=== PATIENT | female | born 1990 | race Caucasian/White ===

== ENCOUNTER 2019-09-13 13:53 | Outpatient (CLI) | payer BC, SELFPAY ==
--- NOTE | ~2019-09-13 | US_ITS ---
EXAMINATION: US thyroid DATE: 09/13/2019 14:23 INDICATION: Abnormal thyroid function test. Hypothyroidism. TECHNIQUE: Multiple ultrasound images of the thyroid were obtained. COMPARISON: None. FINDINGS: The right thyroid lobe measures 4.1 x 2.4 x 1.8 cm. The left thyroid lobe measures 4.7 x 1.2 x 1.5 c m. The thyroid is diffusely heterogeneous and hypoechoic without discrete nodule. Vascularity is nor mal. IMPRESSION: 1. Heterogeneous thyroid, which may be chronic lymphocytic (Laurence) thyroiditis. Reviewed, dictated and finalized at location A. IMPRESSION: 1. Heterogeneous thyroid, which may be chronic lymphocytic (Laurence) thyroidi tis.
== END 2019-09-13 13:54 | disposition home or self-care (01) ==
DX: R94.6 Abnormal results of thyroid function studies (principal)
CPT/HCPCS: 76536

== ENCOUNTER 2021-08-27 14:39 | Emergency (ER) | payer OTHER, SELFPAY ==
[2021-08-27 14:51] VITALS: BP 99/65; PULSE 94; RESP 18; TEMP 36.6; O2SAT 98
[2021-08-27 15:19] LABS: Basophils Percent Auto 0.5 % (0.2-1.2); Eosinophils Absolute Auto 0.1 K/mm3 (0-0.3); Eosinophils Percent Auto 1.9 % (0-4.4); Hematocrit 30.6 % (37.0-47.0); Hemoglobin 9.9 g/dL (12.0-15.0); Immature Granulocyte Absolute 0.01 K/mm3 (0.00-0.031); Immature Granulocyte Percent A 0.2 % (0-0.5); Immature Platelet Fraction Pct 6.7 % (0.9-11.2); Lymphocytes Absolute Auto 3.86 K/mm3 (0.9-3.2); Lymphocytes Percent Auto 60.6 % (18.3-44.2); Mean Corpuscular HGB Conc 32.4 g/dl (32-36); Mean Corpuscular Hemoglobin 27.5 pg (26-34); Mean Platelet Volume 10.9 fl (7.4-10.4); Monocytes Absolute Auto 0.4 K/mm3 (0.1-0.6); Monocytes Percent Auto 6.9 % (2.6-8.5); Neutrophils Absolute Auto 1.9 K/mm3 (1.3-6.7); Neutrophils Percent Auto 29.9 % (45.5-73.1); Platelet Count Result 115 k/mm3 (150-375); Red Cell Distribution Width 14.8 % (11.5-14.5); White Blood Count 6.4 K/mm3 (4.5-10.0)
[2021-08-27 15:26] LABS: INR 1.4; Partial Thromboplastin Time 32.8 SECONDS (22.3-36.8); Prothrombin Time 16.5 Seconds (11.1-14.7)
[2021-08-27 15:27] LABS: Alanine Aminotransferase 40 U/L (6-35); Albumin Level 3.8 g/dL (3.5-5.1); Alkaline Phosphatase 60 U/L (38-126); Anion Gap 6 mmol/L (8-16); Aspartate Amino Transferase 39 U/L (14-36); Bilirubin,Total 0.2 mg/dL (0.2-1.3); Blood Urea Nitrogen 11 mg/dL (7-17); Calcium 8.5 mg/dL (8.4-10.2); Carbon Dioxide 27 mmol/L (22-30); Chloride 104 mmol/L (98-107); Estimated CRCL calculation 168 ml/min; Estimated Glomerular Filt Rate > 60; Glucose 90 mg/dL (65-110); Potassium 3.8 mmol/L (3.4-5.0); Sodium 137 mmol/L (137-145)
--- NOTE | 2021-08-27 20:10 | PC.NURSE ---
no answer x3 at triage
== END 2021-08-27 20:10 | disposition left against medical advice (07) ==
LOC: ANHED 20:22
PROVIDERS: Emergency Medicine
DX: Z53.21 Procedure and treatment not carried out due to patient leaving prior to being seen by health care provider (principal)
CPT/HCPCS: 36415; 80053; 85025; 85055; 85610; 85730; 86850; 86900; 86901; 99199

== ENCOUNTER 2023-09-20 07:11 | Outpatient (RCR) | payer BC, SELFPAY ==
[2023-09-20 07:43] LABS: Hematocrit 28.8 % (37.0-47.0); Hemoglobin 8.7 g/dL (12.0-15.0); Immature Platelet Fraction Pct 8.5 % (0.9-11.2); Mean Corpuscular HGB Conc 30.2 g/dl (32-36); Mean Corpuscular Hemoglobin 24.6 pg (26-34); Mean Corpuscular Volume 81.6 fl (80-100); Mean Platelet Volume 11.7 fl (7.4-10.4); Platelet Count Result 115 k/mm3 (150-375); Red Blood Count 3.53 M/mm3 (4.2-5.4); Red Cell Distribution Width 14.7 % (11.5-14.5); White Blood Count 8.1 K/mm3 (4.5-10.0)
[2023-09-20 08:35] LABS: HIV 1/2 Ab P24 Ag Result Negative (Negative)
[2023-09-20 11:26] LABS: Rapid Plasma Reagin Non-Reactive (NonReactive)
[2023-09-20] MEDS: RHO(D) IMMUNE GLOBULIN 300 MCG/2 ML SYRINGE IM (16:01)
== END 2023-12-19 23:59 | disposition home or self-care (01) ==
LOC: ANHLAB 07:11
PROVIDERS: Visit Provider Student in an Organized Health Care Education/Training Program
DX: Z11.4 Encounter for screening for human immunodeficiency virus [HIV] (principal); Z11.3 Encounter for screening for infections with a predominantly sexual mode of transmission; Z29.13 Encounter for prophylactic Rho(D) immune globulin; O36.0190 Maternal care for anti-D [Rh] antibodies, unspecified trimester, not applicable or unspecified; Z3A.00 Weeks of gestation of pregnancy not specified
CPT/HCPCS: 36415; 85027; 85055; 85461; 86592; 86703; 86850; 86900; 86901; 90384; 96372; G0432; J2790

== ENCOUNTER 2023-10-15 12:40 | Outpatient (CLI) | payer BC, SELFPAY ==
--- NOTE | ~2023-10-15 | US_ITS ---
EXAMINATION: US OB follow up DATE: 10/15/2023 13:04 INDICATION: Maternal gestational diabetes during third trimester assess growth. TECHNIQUE: Real-time ultrasound of the pelvis was performed. The interpreting radiologist was not pre sent for the study. COMPARISON: None. FINDINGS: There is a single living fetus in vertex presentation. The placenta is anterior. heart rate is 145 beats per minute (bpm). The amniotic fluid index is 12.9 cm, which is normal (5th%-95%: 8.8-23. 8 cm at 31 weeks estimated gestational age). The following biometric data were obtained: BPD: 8.5 cm -> 34 weeks 3 days Head circumference: 31.3 cm -> 35 weeks 0 days Abdominal circumference: 29. cm -> 133 weeks 1 days Femur length: 6.3 cm -> 32 weeks 4 days These measurements are concordant. Head circumference to abdominal circumference ratio: 1.07 (normal range 0.95-1.11). Estimated weight: 2158 g (+/-) 324 g or 4 lbs. 12 oz. (+/-) 11 oz. IMPRESSION: 1. Single living fetus in vertex presentation with heart rate of 145 bpm. 2. Gestational age by ultrasound of 33 weeks 6 day(s) +/- 2 week(s) 3 day(s) with ultrasound estimate d date of delivery (RANJANA) of 11/27/2023. Estimated weight is 86th percentile by Hadlock criteria when 12/12/2023 is used as the RANJANA. Please correlate with clinical information or earlier ultrasounds for most accurate RANJANA. 3. Normal amniotic fluid index of 12.9 cm. Reviewed, dictated and finalized at location A. IMPRESSION: 1. Single living fetus in vertex presentation with heart rate of 145 bpm. 2. Gestational age by ultrasound of 33 weeks 6 day(s) +/- 2 week(s) 3 day(s) wi th ultrasound estimated date of delivery (RANJANA) of 11/27/2023. Estimated we ight is 86th percentile by Hadlock criteria when 12/12/2023 is used as the RANJANA. Please correlate with clinical information or earlier ultrasounds for most acc urate RANJANA. 3. Normal amniotic fluid index of 12.9 cm.
== END 2023-10-15 12:41 ==
PROVIDERS: PCP Student in an Organized Health Care Education/Training Program; Visit Provider Student in an Organized Health Care Education/Training Program
DX: Z34.90 Encounter for supervision of normal pregnancy, unspecified, unspecified trimester (principal)
CPT/HCPCS: 76816

== ENCOUNTER 2023-11-09 13:32 | Observation (INO) | payer BC, SELFPAY ==
[2023-11-09 14:00] VITALS: BP 106/68; PULSE 109
[2023-11-09 14:15] VITALS: BP 96/64; PULSE 122
[2023-11-09 14:30] VITALS: BP 91/62; PULSE 113
--- NOTE | 2023-11-09 15:00 | OBADM ---
This patient, Bozena Guerra, admitted to the OB room Labor/Delivery/Recovery 120 for observation. Patient/family oriented to hospital policies and general routines including ID bracelet, bed and alarms, visiting hours, pain management, procedures, bathroom and other care routines, personal items, smoking policy, room service/diet, and visiting hours. Patient/Family are encouraged to report perceived risks to care and to ask questions if they do not understand what they are told or what they should do.
--- NOTE | 2023-11-10 08:36 | PM.OBTRLD ---
OB - Triage/Final Diagnosis Visit Information Date of evaluation: 11/09/23 Reason for evaluation: threatened labor Comments/Additional reasons for admission: I have assessed the risk for this patient, Bozena Linsey Guerra, and determined that she would benefit from observation care. Evaluation Vital signs: Vital Signs - 24 hr 11/09/23 14:00 11/09/23 14:15 11/09/23 14:30 Pulse Rate 109 H 122 H 113 H Blood Pressure 106/68 96/64 L 91/62 L
== END 2023-11-09 14:55 | disposition home or self-care (01) ==
PROVIDERS: Admitting Provider Student in an Organized Health Care Education/Training Program; Visit Provider Student in an Organized Health Care Education/Training Program
DX: O47.03 False labor before 37 completed weeks of gestation, third trimester (principal); Z3A.35 35 weeks gestation of pregnancy
CPT/HCPCS: 59025; G0378; G0379

== ENCOUNTER 2023-11-23 11:54 | Outpatient (RCR) | payer BC, SELFPAY ==
[2023-10-26 12:24] VITALS: BP 98/64; PULSE 100
[2023-10-29 09:06] VITALS: BP 91/58; PULSE 100
[2023-11-02 10:51] VITALS: BP 92/60; PULSE 85
[2023-11-05 16:29] VITALS: BP 99/62; PULSE 80
[2023-11-09 12:00] VITALS: BP 96/62; PULSE 70
[2023-11-12 13:46] VITALS: BP 101/64; PULSE 92
[2023-11-16 12:27] VITALS: BP 101/64; PULSE 101
[2023-11-18 22:02] VITALS: BP 102/70; PULSE 89
--- NOTE | ~2023-11-23 | US_ITS ---
EXAMINATION: US OB follow up DATE: 11/05/2023 16:20 INDICATION: Gestational diabetes. Third trimester. TECHNIQUE: Real-time ultrasound of the pelvis was performed. COMPARISON: Ultrasound 10/15/2023, 05/05/2023 FINDINGS: There is a single living fetus in vertex presentation. The placenta is anterior. heart rate is 148 beats per minute (bpm). The amniotic fluid volume is subjectively normal. The following biometric data were obtained: Biparietal diameter (BPD): 9.0 cm; head circumference (HC): 33.3 cm; abdominal circumference (AC): 34 .3 cm; femur length (FL): 7.1 cm. These measurements are concordant. Estimated weight is 3253 g +/- 488 g, which correlates with the >97th percentile when 12/12/23 is used as estimated date of delivery. As single measurements, these parameters are each equal to the following estimated gestational ages: BPD: 36 weeks 4 days. HC: 38 weeks 0 days. AC: 38 weeks 2 days. FL: 36 weeks 3 days. estimated gestational age based solely on measurements from this exam is 37 weeks 2 days +/- 2 weeks 4 days. IMPRESSION: 1. Single living fetus in vertex presentation. 2. Large for gestational age. Estimated weight is 3253 g +/- 488 g, which correlates with the >97th percentile when 12/12/23 is used as estimated date of delivery. Reviewed, dictated and finalized at location A. IMPRESSION: 1. Single living fetus in vertex presentation. 2. Large for gestational age. Estimated weight is 3253 g +/- 488 g, whic h correlates with the >97th percentile when 12/12/23 is used as estimated date of delivery.
[2023-11-23 12:39] VITALS: BP 102/63; PULSE 90
== END 2024-01-03 09:43 | disposition home or self-care (01) ==
LOC: ANHOBOP 11:54
PROVIDERS: Visit Provider Obstetrics & Gynecology
DX: O24.419 Gestational diabetes mellitus in pregnancy, unspecified control (principal); Z3A.33 33 weeks gestation of pregnancy
CPT/HCPCS: 59025; 76816

== ENCOUNTER 2023-11-25 02:55 | Inpatient (IN) | payer BC, SELFPAY ==
[2023-11-25] VITALS (53 sets, daily range): BP systolic 88–106; BP diastolic 47–69; PULSE 61–102; RESP 14–18; TEMP 36.6–37.6; O2SAT 95–100; BMI 35.9
[2023-11-25] MEDS: LACTATED RINGERS 1,000 ML 125 ML IV CONT ×2 (03:32→06:11)
--- NOTE | 2023-11-25 03:35 | LDADM ---
This patient, Bozena Guerra, was admitted to Labor/Delivery/Recovery 119 on 11/25/23 at 02:55. Plans for labor, pain management and were discussed with patient. Patient/family oriented to hospital policies and general routines including ID bracelet, bed and alarms, visiting hours, pain management, procedures, bathroom and other care routines, personal items, smoking policy, room service/diet and guest tray routines, security routines, and visiting hours. Patient/Family are encouraged to report perceived risks to care and to ask questions if they do not understand what they are told or what they should do. See OBIX for further documentation.
[2023-11-25 03:55] LABS: OBXCEM ROM Plus Positive (Negative)
[2023-11-25 04:02] LABS: Basophils Percent Auto 0.3 % (0.2-1.2); Eosinophils Absolute Auto 0.1 K/mm3 (0-0.3); Eosinophils Percent Auto 0.7 % (0-4.4); Hematocrit 33.8 % (37.0-47.0); Hemoglobin 11.3 g/dL (12.0-15.0); Immature Granulocyte Absolute 0.04 K/mm3 (0.00-0.031); Immature Granulocyte Percent A 0.5 % (0-0.5); Lymphocytes Absolute Auto 3.44 K/mm3 (0.9-3.2); Lymphocytes Percent Auto 39.6 % (18.3-44.2); Mean Corpuscular HGB Conc 33.4 g/dl (32-36); Mean Corpuscular Hemoglobin 27.8 pg (26-34); Mean Corpuscular Volume 83.3 fl (80-100); Mean Platelet Volume 11.1 fl (7.4-10.4); Monocytes Absolute Auto 0.6 K/mm3 (0.1-0.6); Monocytes Percent Auto 7.4 % (2.6-8.5); Neutrophils Absolute Auto 4.5 K/mm3 (1.3-6.7); Neutrophils Percent Auto 51.5 % (45.5-73.1); Platelet Count Result 129 k/mm3 (150-375); Red Blood Count 4.06 M/mm3 (4.2-5.4); Red Cell Distribution Width 19.2 % (11.5-14.5); White Blood Count 8.7 K/mm3 (4.5-10.0)
[2023-11-25 04:07] LABS: Partial Thromboplastin Time 23.3 Seconds (22.3-36.8); Prothrombin Time 13.1 Seconds (11.1-14.7)
[2023-11-25 04:10] LABS: Glucose Point of Care 79 mg/dl (65-105)
[2023-11-25 04:25] LABS: Rubella IgG Antibody > 110.0 IU/ML
[2023-11-25 04:27] LABS: Rapid Plasma Reagin Non-Reactive (NonReactive)
[2023-11-25 04:36] LABS: HIV 1/2 Ab P24 Ag Result Negative (Negative)
[2023-11-25 05:08] LABS: Hepatitis B Surface Antigen Negative (Negative)
[2023-11-25] MEDS: AZITHROMYCIN 500 MG/NS 250 ML 500 MG/250 ML BAG 250 MG IVPB (06:38)
[2023-11-25] MEDS: ACETAMINOPHEN 500 MG TABLET 1000 MG PO (06:43)
--- NOTE | 2023-11-25 07:08 | PM.IMHP ---
H&P: HPI History of Present Illness Date/Time: 11/25/23 07:08 Chief Complaint: spontaneous rupture of membranes history of gestational diabetes desires permanent sterilization Narrative: 32 yo at 37w4d who presents with SROM. pt has h/o prior . Review of Systems Cardiovascular: Cardiovascular: Denies chest pain, Denies leg edema, Denies palpitations, Denies dyspnea and Denies dyspnea on exertion Respiratory: Respiratory: Denies cough, Denies dyspnea and Denies dyspnea on exertion Gastrointestinal: Gastrointestinal: Denies abdominal pain, Denies constipation, Denies diarrhea, Denies nausea and Denies vomiting Genitourinary: Genitourinary: Denies hematuria, Denies urinary frequency, Denies dysuria, Denies pelvic pain, Denies urinary incontinence and Denies vaginal discharge Neurologic: Reports system reviewed and no additional complaints, except as documented Psychiatric: Psychiatric: Reports no additional psychiatric complaints Endocrine: Endocrine: Denies palpitations PMFSH Past Medical History Medical History Abnormal glucose tolerance in IBS (irritable bowel syndrome) Suppression of menses Vaginal discharge Surgical History Surgical History H/O gastric sleeve History of delivery Family History Family History Father Diabetes mellitus Mother COPD mixed type Grandparent Breast cancer Social History Social History Smoking status: Never smoker Second hand tobacco smoke exposure: No Alcohol intake: never Substance use: never Substance use type: does not use Do You Feel Safe in your Home?: Yes Lack of Transportation: No Lack of Food: Never True Current Housing: I Have Housing Concerned About Future Housing: No Difficulty Paying Gas/Electric Bills: No Difficulty Paying for Meds: No Currently Unemployed: No Education: Bachelor's Degree Difficulty w/ Childcare or Family Care: No Living arrangements: with family Occupation/Education: occupation 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 Gender identity (if verbalized by the patient): Female Spiritual care concerns: No Meds Home Medications and Allergies Home Medications Medication Instructions Recorded Confirmed Type folic acid 1 mg tablet 1 mg PO DAILY 02/02/23 11/25/23 History levothyroxine 88 mcg tablet 88 mcg PO DAILY 02/02/23 11/25/23 History omeprazole 20 mg capsule,delayed 20 mg PO DAILY 02/02/23 11/25/23 History release ksvuqdxxhr-zpxbyxgkstqwt-vktjbvtc 1 cap PO Q6H PRN pain #30 caps 06/10/23 11/24/23 Rx 50 mg-300 mg-40 mg capsule (Fioricet) metformin 500 mg tablet See Rx Instructions .Route 09/20/23 11/25/23 Rx .COMPLEX #90 tabs vits no.126-ferrous fum 1 tablet PO DAILY 11/12/23 11/25/23 History 28 mg iron-folic acid 800 mcg tablet (Classic ) RSV vac, preF A and preF B(PF) 120 0.5 ml IM ONCE #1 ea 11/15/23 11/25/23 Rx mcg/0.5 mL IM solution (Abrysvo (PF)) heparin (porcine) 5,000 unit/mL (1 5,000 unit subcut Q12H #50 mL 11/17/23 11/25/23 Rx mL) injection cartridge Allergies Allergy/AdvReac Type Severity Reaction Status Date / Time adhesive AdvReac Mild Rash Verified 11/25/23 04:48 Vital Signs Vital Signs - 24 hr 11/25/23 03:34 11/25/23 04:09 11/25/23 04:08 Temperature 98.2 F Pulse Rate 95 Respiratory Rate 18 Blood Pressure 88/58 L Oxygen Delivery Room Air 11/25/23 04:55 11/25/23 05:11 11/25/23 06:01 Temperature 97.9 F Pulse Rate 83 81 Respiratory Rate Blood Pressure 102/60 99/62 L Oxygen Delivery 11/25/23 06:49 11/25/23 07:01 11/25/23 05:00 Temperature 98.3 F Pulse Rate 102 H 83 Respiratory Rate Blood Pressure 106/65 1
[2023-11-25] MEDS: FAMOTIDINE 20 MG/2 ML VIAL IV PUSH (07:10)
[2023-11-25] MEDS: ONDANSETRON INJ 4 MG/2 ML VIAL IV PUSH (07:10)
--- NOTE | 2023-11-25 07:29 | WPDANESEPPF ---
Anes - Initial Pre Proc Eval Procedure: Operation Date: 11/25/23 03:10 Proposed Procedures p Section - Edwardo Pan MD Date/Time: 11/25/23 07:29 Surgeon: Edwardo Pan MD Pre Op Diagnosis: Leaking Fluid R C/S Patient Data Age: 32 Gender: F Height: 1.55 m Weight: 86.36 kg Last Vital Signs Temp 98.3 F 11/25/23 06:49 Pulse 102 H 11/25/23 07:01 Resp 18 11/25/23 04:08 BP 106/65 11/25/23 07:01 O2 Del Method Room Air 11/25/23 03:34 Allergies Allergy/AdvReac Type Severity Reaction Status Date / Time adhesive AdvReac Mild Rash Verified 11/25/23 04:48 Home Medications Medication Instructions Recorded Confirmed Type folic acid 1 mg tablet 1 mg PO DAILY 02/02/23 11/25/23 History levothyroxine 88 mcg tablet 88 mcg PO DAILY 02/02/23 11/25/23 History omeprazole 20 mg capsule,delayed 20 mg PO DAILY 02/02/23 11/25/23 History release lrhbkccwys-lanxrwjqbiecy-bebryszx 1 cap PO Q6H PRN pain #30 caps 06/10/23 11/24/23 Rx 50 mg-300 mg-40 mg capsule (Fioricet) metformin 500 mg tablet See Rx Instructions .Route 09/20/23 11/25/23 Rx .COMPLEX #90 tabs vits no.126-ferrous fum 1 tablet PO DAILY 11/12/23 11/25/23 History 28 mg iron-folic acid 800 mcg tablet (Classic ) RSV vac, preF A and preF B(PF) 120 0.5 ml IM ONCE #1 ea 11/15/23 11/25/23 Rx mcg/0.5 mL IM solution (Abrysvo (PF)) heparin (porcine) 5,000 unit/mL (1 5,000 unit subcut Q12H #50 mL 11/17/23 11/25/23 Rx mL) injection cartridge Laboratory Tests 11/25/23 11/25/23 11/25/23 03:34 03:36 03:37 WBC 8.7 K/mm3 (4.5-10.0) RBC 4.06 L M/mm3 (4.2-5.4) Hgb 11.3 L g/dL (12.0-15.0) Hct 33.8 L % (37.0-47.0) MCV 83.3 fl (80-100) MCH 27.8 pg (26-34) MCHC 33.4 g/dl (32-36) RDW 19.2 H % (11.5-14.5) Plt Count 129 L k/mm3 (150-375) MPV 11.1 H fl (7.4-10.4) Immature Gran % (Auto) 0.5 % (0-0.5) Neut % (Auto) 51.5 % (45.5-73.1) Lymph % (Auto) 39.6 % (18.3-44.2) [place] % (Auto) 7.4 % (2.6-8.5) Eos % (Auto) 0.7 % (0-4.4) Baso % (Auto) 0.3 % (0.2-1.2) Lymph # (Auto) 3.44 H K/mm3 (0.9-3.2) [place] # (Auto) 0.6 K/mm3 (0.1-0.6) Eos # (Auto) 0.1 K/mm3 (0-0.3) Baso # (Auto) 0.0 K/mm3 (0.0-0.1) Abs Immat Gran (auto) 0.04 H K/mm3 (0.00-0.031) Absolute Neuts (auto) 4.5 K/mm3 (1.3-6.7) Absolute Nucleated RBC 0.000 K/mm3 (0.0-0.012) Nucleated RBC % 0.0 % (0.0-0.2) PT 13.1 Seconds (11.1-14.7) INR 1.0 APTT 23.3 Seconds (22.3-36.8) POC Capillary Glucose Membranes Rupture Rom plus positive (Negative) RPR Non-reactive (NonReactive) Hep Bs Antigen Negative (Negative) HIV 1&2 Ab/P24 Ag 4thGn Negative (Negative) Rubella IgG Antibody > 110.0 IU/ML (10 - ) Blood Type A Negative Antibody Screen Negative 11/25/23 04:02 WBC RBC Hgb Hct MCV MCH MCHC RDW Plt Count MPV Immature Gran % (Auto) Neut % (Auto) Lymph % (Auto) [place] % (Auto) Eos % (Auto) Baso % (Auto) Lymph # (Auto) [place] # (Auto) Eos # (Auto) Baso # (Auto) Abs Immat Gran (auto) Absolute Neuts (auto) Absolute Nucleated RBC Nucleated RBC % PT INR APTT POC Capillary Glucose 79 mg/dl (65-105) Membranes Rupture RPR Hep Bs Antigen HIV 1&2 Ab/P24 Ag 4thGn Rubella IgG Antibody Blood Type Antibody Screen Patient hx anesthesia problems: none Family hx anesthesia problems: none Results Review: All pre-operative r
[2023-11-25] MEDS: ceFAZolin 2 GM/D5W 50 ML 2 GM/50 ML BAG IVPB (07:35)
--- NOTE | 2023-11-25 08:50 | W.PM.OBCSD ---
OB - Delivery Note Procedure Delivery date: 11/25/23 Pre-op diagnosis: Gestational Diabetes and Previous Delivery Post-op Diagnosis: Same Induction method: None Delivery monitor: External FHT Prior to decision for section, ACOG/SMFM labor guidelines were considered and discussed with the patient and staff. Decision made to proceed with the section.: Yes Procedure Performed: Repeat Secondary branch: low cervical, transverse and Tubal Ligation Surgeon: Edwardo Pan MD Anesthesia type: Spinal Description of Procedure/Findings: The patient was taken to the operating room where epidural anesthesia was found to be adequate. She was then prepped and draped in the usual sterile fashion in the dorsal supine position with a leftward tilt. A Pfannenstiel skin incision was then made with the scalpel and carried through to the underlying layer of fascia. The fascia was then incised in the midline and the incision extended laterally with the Dean scissors. The superior aspect of the fascia was then grasped with the Cuong clamps, elevated, and the underlying rectus muscles dissected off bluntly and sharply. Attention was then turned to the inferior aspect of this incision which, in a similar fashion, was grasped, tented up with the Cuong clamps, and the rectus muscles dissected off both bluntly and sharply. The rectus muscles were then in the midline, and the peritoneum identified, tented up, and entered sharply with the Metzenbaum scissors. The peritoneal incision was then extended superiorly and inferiorly with good visualization of the bladder. The bladder blade was then inserted and the vesicouterine peritoneum identified, grasped with the pick-ups and entered bluntly. A ring retractor was placed in the abdomen for better visualization. The lower uterine segment incised in a low, transverse fashion with the scalpel. The uterine incision was then extended laterally bluntly. The ?s head delivered atraumatically. The remainder of the was delivered atraumatically. The cord was clamped and cut. The was handed off to the waiting pediatricians (staff). Cord gasses were sent. The placenta was then removed manually, the uterus exteriorized, and cleared of all clots and debris. The uterine incision was repaired with 0 monocryl in a running fashion. Both fallopian tubes were identified and followed out to the fimbrae bilaterally. The left fallopian tube was grasped with Babcocks and elevated to identify an avascular space in the mesosalpinx. The tube was then transected and ligated using the Ligasure device along the inferior mesosalpinx. The fallopian tube was then completely transected near the uterine corpus. The same procedure was repeated for the right fallopian tube. The uterus was returned to the abdomen. Hemaderm powder was placed on the uterus for hemostasis of the serosa. The serosa was noted to be oozing from previous peritoneal adhesions. The uterus was then reinspected to ensure hemostasis as were all subfascial tissues. The rectus muscles were re-approximated with 0 -vicryl with two interrupted mattress sutures. The fascia was reapproximated with 0 vicryl in a running fashion. The subcutaneous layer was copiously irrigated to clear any clots or debris. The subcutaneous tissue was reapproximated using 3-0 Vicryl in a interrupted fashion. The skin was closed with 4-0 monocryl. The patient tolerated the procedure well. Sponge, lap and needle counts were correct times three. The patient was taken to the recovery room in stable condition. Specimen: Yes Estimated Blood Loss: 625 Drains: No Packing: No Pathology: Yes Complications: No immediate complications Condition: Stable Baby Date of : 11/25/23 Gestational Age by Date: 37 gender: Female Weight (pounds): 7 Weight (ounces): 10 presentation: vertex position: Right Occiput Posterior Placenta delivery desc
[2023-11-25] MEDS: OXYTOCIN 30 UNITS/NS 500 ML 30 UNITS/500 ML BAG 125 UNITS IV CONT (09:30)
[2023-11-25] MEDS: LIDOCAINE 5% PATCH 1 PATCH TRANSDERM (09:43)
[2023-11-25] MEDS: LORATADINE 10 MG TABLET PO (10:42)
--- NOTE | 2023-11-25 11:04 | OBPPTRN ---
Patient transferred to post room # 1104 via the bed. Oriented to unit, room, information board, rooming in, admission packet and security measures. Patient verbalizes understanding.
[2023-11-25] MEDS: SIMETHICONE 80 MG TAB.CHEW PO ×2 (11:31→16:25)
--- NOTE | 2023-11-25 12:05 | PM.OBDSVD ---
DS: Admitting Diagnosis Discharge Date 11/27/23 Admitting Diagnosis intrauterine at term history of hypothyroidism desires permanent sterilization h/o mesenteric DVT GDM DS: Discharge Diagnosis Discharge Diagnosis (1) delivery delivered: Code(s): O82 - Encounter for delivery without indication Status: Acute (2) Post-operative pain: Code(s): G89.18 - Other acute postprocedural pain Status: Acute OB - DS: Summary Hospital Course Hospital Course: 32 yo at 37w4d who presents with SROM. Pt had prior and was scheduled for repeat. Pt desires permanent sterilization via bilateral salpingectomy at the time of . pregnacny complicated by: GDM, hypothyroidism, h/o DVT, h/o depression OB Procedures : None OB Procedures Intrapartum: OB Procedures: : None Peripartum Data Infant Delivery Method: Section Procedures: Procedures Operation Date: 11/25/23 07:30 Actual Procedure Side Surgeon p Section Bilateral Edwardo Pan MD complications: none Status at Discharge Functional status at discharge: independent ambulation Overall status at discharge: patient is progressing back to baseline Time Spent with Patient Time attestation: Total time spent providing and/or coordinating discharge services: Time spent: Less than 30 minutes Exam Const: General: comfortable and no acute distress Resp: Effort & Inspection: normal respiratory effort Auscultation: clear to auscultation bilaterally Cardio: Rate: regular rate GI: Inspection: non-distended GI Palp: Yes Soft to palpation, No Firmness to palpation present (GI), Yes Tenderness to palpation present (GI) (mild tenderness over incision ) and No Guarding due to palpation present (GI) Auscultation: normal bowel sounds Psych: Appearance: grossly normal Mental Status: mental status grossly normal DS: Data Data Completed and Pending Pending studies at discharge: Pending at discharge 11/25/23 09:29 Surgical [PTH] Routine 11/25/23 09:30 Surgical [PTH] Routine Labs on day of discharge: Labs from last 24 hours 11/25/23 11/25/23 11/25/23 04:02 03:37 03:36 WBC 8.7 RBC 4.06 L Hgb 11.3 L Hct 33.8 L MCV 83.3 MCH 27.8 MCHC 33.4 RDW 19.2 H Plt Count 129 L MPV 11.1 H Immature Gran % (Auto) 0.5 Neut % (Auto) 51.5 Lymph % (Auto) 39.6 [place] % (Auto) 7.4 Eos % (Auto) 0.7 Baso % (Auto) 0.3 Lymph # (Auto) 3.44 H [place] # (Auto) 0.6 Eos # (Auto) 0.1 Baso # (Auto) 0.0 Abs Immat Gran (auto) 0.04 H Absolute Neuts (auto) 4.5 Absolute Nucleated RBC 0.000 Nucleated RBC % 0.0 PT 13.1 INR 1.0 APTT 23.3 POC Capillary Glucose 79 Membranes Rupture RPR Non-reactive Hep Bs Antigen Negative HIV 1&2 Ab/P24 Ag 4thGn Negative Rubella IgG Antibody > 110.0 Blood Type A Negative Antibody Screen Negative 11/25/23 03:34 WBC RBC Hgb Hct MCV MCH MCHC RDW Plt Count MPV Immature Gran % (Auto) Neut % (Auto) Lymph % (Auto) [place] % (Auto) Eos % (Auto) Baso % (Auto) Lymph # (Auto) [place] # (Auto) Eos # (Auto) Baso # (Auto) Abs Immat Gran (auto) Absolute Neuts (auto) Absolute Nucleated RBC Nucleated RBC % PT INR APTT POC Capillary Glucose Membranes Rupture Rom plus positive RPR Hep Bs Antigen HIV 1&2 Ab/P24 Ag 4thGn Rubella IgG Antibody Blood Type Antibody Screen Discharge Plan Discharge Discharging Clinician: Edwardo Pan Patient Disposition: Home, Self-Care Activity: as tolerated and pelvic rest Diet: regular Wound Care Instructions: incision open to air Discharge Instructions: Education: Mom and Baby Guide Given to: Mother Follow-Up: Call your delivering provider's office for an appointment to be seen in: 2 Weeks Mom and baby should
--- NOTE | 2023-11-25 12:16 | PC.NURSE ---
Percocet 5 mg PO given at 1125 for pain of a 6 on scale. Percocet was removed from Pyxis per MD orders and then when scanning in pt's room, all PP orders had been discontinued. RN called labor nurse Sarah Jorgensen and she said she would work on getting them reinstated in the computer. RN continued to give Percocet 5 mg since it was previously ordered. When PP orders were reinstated, the Percocet was discontinued and [place] 5 mg or 10 mg were the current orders. Will continue with those orders in the future for pain management.
[2023-11-25] MEDS: ACETAMINOPHEN 325 MG TABLET 650 MG PO ×2 (12:52→20:07)
[2023-11-25] MEDS: KETOROLAC 15 MG/ML VIAL (*BKC) IV PUSH ×2 (12:52→20:07)
[2023-11-25] MEDS: DEXTROSE 5%/0.45% SOD CHL 1,000 ML 125 ML IV CONT (14:17)
[2023-11-25] MEDS: DOCUSATE SODIUM 100 MG CAPSULE PO (16:25)
[2023-11-25] MEDS: HYDROcodone/acetaminophen (*CRX) 5-325 MG TABLET 1 TAB PO (20:06)
[2023-11-26] MEDS: KETOROLAC 15 MG/ML VIAL (*BKC) IV PUSH ×2 (02:10→09:00)
[2023-11-26] MEDS: HYDROcodone/acetaminophen (*CRX) 5-325 MG TABLET 1 TAB PO ×3 (02:10→15:00)
[2023-11-26] MEDS: ACETAMINOPHEN 325 MG TABLET 650 MG PO ×4 (02:10→21:09)
[2023-11-26 04:40] VITALS: BP 100/63; PULSE 91; RESP 16; TEMP 36.7; O2SAT 100
[2023-11-26 05:46] LABS: Basophils Percent Auto 0.3 % (0.2-1.2); Eosinophils Absolute Auto 0.1 K/mm3 (0-0.3); Eosinophils Percent Auto 0.7 % (0-4.4); Immature Granulocyte Absolute 0.05 K/mm3 (0.00-0.031); Immature Granulocyte Percent A 0.5 % (0-0.5); Lymphocytes Absolute Auto 2.18 K/mm3 (0.9-3.2); Lymphocytes Percent Auto 20.9 % (18.3-44.2); Mean Corpuscular HGB Conc 32.1 g/dl (32-36); Mean Corpuscular Hemoglobin 27.1 pg (26-34); Mean Corpuscular Volume 84.3 fl (80-100); Mean Platelet Volume 11.6 fl (7.4-10.4); Monocytes Absolute Auto 0.9 K/mm3 (0.1-0.6); Monocytes Percent Auto 8.8 % (2.6-8.5); Neutrophils Absolute Auto 7.2 K/mm3 (1.3-6.7); Neutrophils Percent Auto 68.8 % (45.5-73.1); Platelet Count Result 125 k/mm3 (150-375); Red Blood Count 3.32 M/mm3 (4.2-5.4); Red Cell Distribution Width 19.2 % (11.5-14.5); White Blood Count 10.4 K/mm3 (4.5-10.0)
[2023-11-26] MEDS: LEVOTHYROXINE SODIUM 88 MCG TABLET PO (06:41)
[2023-11-26 07:35] VITALS: BP 92/55; PULSE 93; RESP 16; TEMP 36.3; O2SAT 100
--- NOTE | 2023-11-26 07:54 | WPDANLDPN2 ---
Anes-Prog Note L&D Date/Time: 11/26/23 07:54 Comfortable throughout: labor and delivery Neuraxial method: epidural Epidural/Spinal procedure site: clean & non-tender Neuro status: Neuro function grossly intact. Cardiovascular status: normal Respiratory status: normal Airway patency: baseline Mental status: baseline Post-Op hydration status: normal Vital Signs: Last Vital Signs Temp 36.7 C 11/26/23 04:40 Pulse 91 11/26/23 04:40 Resp 16 11/26/23 04:40 BP 100/63 11/26/23 04:40 Pulse Ox 100 11/26/23 04:40 O2 Del Method Room Air 11/25/23 10:45 Pain score (VAS): 0/10 I/O: Intake & Output 11/25/23 11/25/23 11/26/23 15:59 23:59 07:59 Intake Total 1933.3 200 Output Total 1245 800 350 Balance -1245 1133.3 -150 Post-procedural complaints: pruritis (mild) Patient feedback: Patient satisfied with anesthetic care.
--- NOTE | 2023-11-26 07:56 | WPDANLDNPN2 ---
Anes-Prog Note L&D-Neuraxial Date/Time: 11/26/23 07:56 Neuraxial medications: intrathecal PF morphine Opiod-related complaints: pruritis Patient feedback: Patient satisfied with post-operative pain management.
[2023-11-26] MEDS: MULTIVIT/MIN/PREN/FOL AC/IRON TABLET 1 TAB PO (09:01)
[2023-11-26] MEDS: POLYSACCHARIDE IRON COMPLEX 150 MG CAPSULE PO ×2 (09:01→17:31)
[2023-11-26] MEDS: SIMETHICONE 80 MG TAB.CHEW PO ×3 (09:01→17:31)
[2023-11-26] MEDS: DOCUSATE SODIUM 100 MG CAPSULE PO ×2 (09:02→17:32)
[2023-11-26] MEDS: ENOXAPARIN 40 MG/0.4 ML SYRINGE SUB-Q (09:02)
--- NOTE | 2023-11-26 11:37 | PM.OBDSVD ---
DS: Admitting Diagnosis Discharge Date 11/27/2023 Admitting Diagnosis DS: Discharge Diagnosis Discharge Diagnosis (1) , delivered: Code(s): O80 - Encounter for full-term uncomplicated delivery Status: Acute OB - DS: Summary Hospital Course Hospital Course: 32 yo at 37w4d who presents with SROM. Pt had prior and was scheduled for repeat. Pt desires permanent sterilization via bilateral salpingectomy at the time of . pregnacny complicated by: GDM, hypothyroidism, h/o DVT, h/o depression OB Procedures : None OB Procedures Intrapartum: OB Procedures: : None Peripartum Data Procedures: Procedures Operation Date: 11/25/23 07:30 Actual Procedure Side Surgeon p Section Bilateral Edwardo Pan MD Time Spent with Patient Time attestation: Total time spent providing and/or coordinating discharge services: DS: Data Data Completed and Pending Pending studies at discharge: Pending at discharge 11/25/23 09:29 Surgical [PTH] Routine Surgical [PTH] Routine Labs on day of discharge: Labs from last 24 hours 11/26/23 04:43 WBC 10.4 H RBC 3.32 L Hgb 9.0 L Hct 28.0 L MCV 84.3 MCH 27.1 MCHC 32.1 RDW 19.2 H Plt Count 125 L MPV 11.6 H Immature Gran % (Auto) 0.5 Neut % (Auto) 68.8 Lymph % (Auto) 20.9 [place] % (Auto) 8.8 H Eos % (Auto) 0.7 Baso % (Auto) 0.3 Lymph # (Auto) 2.18 [place] # (Auto) 0.9 H Eos # (Auto) 0.1 Baso # (Auto) 0.0 Abs Immat Gran (auto) 0.05 H Absolute Neuts (auto) 7.2 H Absolute Nucleated RBC 0.000 Nucleated RBC % 0.0 Blood Type A Negative Antibody Screen Negative Screen Negative Baby's Blood Type A pos Baby's NAYA Negative Doses of RhIg Required 1 Discharge Plan Discharge Discharging Clinician: Edwardo Pan Patient Disposition: Home, Self-Care Activity: as tolerated and pelvic rest Diet: regular Wound Care Instructions: incision open to air Patient Instructions: Antibiotic Form, (DC) Stand Alone Forms: General Discharge Information Follow-up/Referrals: Edwardo Pan MD [Physician] - 2 Weeks Discharge Medications: New oxycodone-acetaminophen 5-325 mg tablet 1 tablet PO Q6H PRN (Reason: pain) Qty: 28 0RF enoxaparin [Lovenox] 40 mg/0.4 mL syringe 40 mg subcut DAILY 42 Days Qty: 16.8 0RF sertraline 50 mg tablet 50 mg PO DAILY Qty: 90 0RF hydrocodone-acetaminophen 5-325 mg Tablet 1 tablet PO Q3H PRN (Reason: Breakthrough Pain Rated 4-6) Qty: 30 0RF enoxaparin [Lovenox] 40 mg/0.4 mL Syringe 40 mg subcut DAILY Qty: 42 0RF ibuprofen 600 mg tablet 600 mg PO TID Qty: 30 0RF Continued levothyroxine 88 mcg tablet 88 mcg PO DAILY Discontinued heparin (porcine) 5,000 unit/mL (1 mL) cartridge 5,000 unit subcut Q12H Qty: 50 0RF folic acid 1 mg tablet 1 mg PO DAILY omeprazole 20 mg capsule,delayed release(DR/EC) 20 mg PO DAILY Classic 28 mg iron- 800 mcg Tablet 1 tablet PO DAILY [id number] [Fioricet] 50-300-40 mg capsule 1 cap PO Q6H PRN (Reason: pain) Qty: 30 0RF metformin 500 mg tablet See Rx Instructions .ROUTE .COMPLEX Qty: 90 0RF Dose Instruction: TAKE 1 TABLET BY MOUTH DAILY Rx Instructions: TAKE 1 TABLET BY MOUTH DAILY Abrysvo (PF) 120 mcg/0.5 mL recon soln 0.5 ml IM ONCE Qty: 1 0RF Rx Instructions: as a single dose Date of admission: 11/25/23 02:55 Primary Care Provider: PHYSICIAN NOT ON STAFF,NONSTAFF Admitting Provider: Edwardo Pan Attending physician on admission: Edwardo Pan Condition: Stable
[2023-11-26] MEDS: IBUPROFEN 600 MG TABLET PO ×2 (14:59→21:09)
[2023-11-26] MEDS: RHO(D) IMMUNE GLOBULIN 300 MCG/2 ML SYRINGE IM (15:22)
[2023-11-26] MEDS: HYDROcodone/acetaminophen (*CRX) 10-325 MG TABLET 1 TAB PO (19:57)
[2023-11-26 20:00] VITALS: BP 103/70; PULSE 98; RESP 18; TEMP 37.4; O2SAT 99
[2023-11-27] MEDS: HYDROcodone/acetaminophen (*CRX) 10-325 MG TABLET 1 TAB PO ×2 (00:39→08:29)
[2023-11-27] MEDS: ACETAMINOPHEN 325 MG TABLET 650 MG PO ×2 (04:00→10:20)
[2023-11-27] MEDS: IBUPROFEN 600 MG TABLET PO ×2 (04:01→10:20)
[2023-11-27 08:30] VITALS: BP 122/84; PULSE 72; RESP 18; TEMP 36.8; O2SAT 100
[2023-11-27] MEDS: POLYSACCHARIDE IRON COMPLEX 150 MG CAPSULE PO (08:30)
[2023-11-27] MEDS: ENOXAPARIN 40 MG/0.4 ML SYRINGE SUB-Q (08:30)
[2023-11-27] MEDS: SIMETHICONE 80 MG TAB.CHEW PO (08:30)
[2023-11-27] MEDS: DOCUSATE SODIUM 100 MG CAPSULE PO (08:30)
--- NOTE | 2023-11-27 10:07 | PM.OBPNVD ---
OB - PN: Subj Subjective Date/time seen: 11/27/23 10:07 Patient comments: pain well controlled, tolerating diet and other (Decreasing lochia.) baby status: doing well and nursing well OB - PN: Obj Data Labs 11/26/23 04:43 Labs: Laboratory Results - last 24 hr 11/26/23 04:43 Blood Type A Negative Antibody Screen Negative Screen Negative Baby's Blood Type A pos Baby's NAYA Negative Doses of RhIg Required 1 OB - PN A/P Assessment and Plan (1) Delivery by section: Status: Acute Assessment and Plan: Doing well. Discharge has been ordered previously. Plan day: 2 Plan: discharge home Comments: Patient doing well. Time Spent With Patient Time: Total time spent is greater than 50% in coordination of care (as documented) at patient's floor/unit and/or counseling patient:
[2023-11-29 12:50] VITALS: BP 107/67; PULSE 86; RESP 18; TEMP 36.8
== END 2023-11-27 13:15 | disposition home or self-care (01) | DRG 785 ==
LOC: ANHLDR 03:09 → ANHOB2 11:24 → ANHLDR 11-30 07:30 → ANHOB2 11-30 07:30
PROVIDERS: Admitting Provider Student in an Organized Health Care Education/Training Program; Visit Provider Obstetrics & Gynecology
PROC: 10D00Z1 Extraction of Products of Conception, Low, Open Approach (ICD-10-PCS; CPT 59514; principal; 2023-11-25 03:10)
DX: O34.219 Maternal care for unspecified type scar from previous cesarean delivery (principal); O99.844 Bariatric surgery status complicating childbirth; Z3A.37 37 weeks gestation of pregnancy; Z37.0 Single live birth; O99.284 Endocrine, nutritional and metabolic diseases complicating childbirth; E03.9 Hypothyroidism, unspecified; O24.424 Gestational diabetes mellitus in childbirth, insulin controlled; O99.02 Anemia complicating childbirth; D64.9 Anemia, unspecified; O69.81X0 Labor and delivery complicated by cord around neck, without compression, not applicable or unspecified; Z30.2 Encounter for sterilization; Z86.718 Personal history of other venous thrombosis and embolism
CPT/HCPCS: 36415; 82948; 84112; 85025; 85461; 85610; 85730; 86592; 86703; 86762; 86850; 86900; 86901; 87340; 88302; 88307; 90384; A9270; G0432; J0456; J0690; J1650; J1885; J2274; J2371; J2405; J2590; J2790; J7120